=== PATIENT | female | born 1955 | race African-American/Black ===

== ENCOUNTER 2018-03-04 08:32 | Emergency (ER) | payer OTHER ==
[~2018-03-04] VITALS: Ht 162.6 cm; Wt 84.9 kg
[2018-03-04] MEDS ORDERED: PERCOCET 5/31 TABLET PO (10:43)
[2018-03-04 12:11] VITALS: BP 155/90
== END 2018-03-04 12:13 | disposition home or self-care (01) ==
LOC: EME 08:32
DX: S30.0XXA Contusion of lower back and pelvis, initial encounter (principal); W18.11XA Fall from or off toilet without subsequent striking against object, initial encounter; J44.9 Chronic obstructive pulmonary disease, unspecified; Z99.81 Dependence on supplemental oxygen; E11.9 Type 2 diabetes mellitus without complications; E78.5 Hyperlipidemia, unspecified; Z87.891 Personal history of nicotine dependence
CPT/HCPCS: 72100; 99281; 99284